=== PATIENT | female | born 1990 | race Caucasian/White ===

== ENCOUNTER 2024-06-02 15:19 | Emergency (ER) | payer OTHER, SELFPAY ==
[2024-06-02 15:41] VITALS: BP 112/74
--- NOTE | 2024-06-02 15:56 | ED.GENMED ---
History of Present Illness
General
Chief Complaint: Cold/Flu/URI Symptoms
Source: patient
Time Seen by Provider: 06/02/24 15:49
History of Present Illness
History of Present Illness:
33-year-old female presenting to the emergency department for evaluation after she was COVID-positive 10 days ago, not feeling any better and tested positive for the flu today. Patient endorses continued cough, fevers, body ache, fatigue and
generally feeling unwell. No known sick contacts, recent travel or recent antibiotics. 24-hour denies any GI related symptoms at this time. No other concerns.
Past History
Past History
ED Past Medical History: Other (Migraines, depression, WPW with ablation, recent HELLP syndrome)
ED Past Surgical History:
Social History
Tobacco: Non-smoker
Alcohol: None
Drug: None
Personal:
Living: with family
Employment: Employed
Family History
Family History: Negative Diabetes, Hypertension or CAD
Review of Systems
Review of Systems
All Other Systems: ROS reviewed and negative except as documented in HPI and ROS
Phy Exam
Physical Exam
Physical Exam:
GENERAL: Alert , in no apparent distress, ill-appearing but nontoxic, sounds congested, intermittent cough throughout the exam
EYE: conjunctiva clear
NECK: Supple
ENT: o/p clr, mmm.
CARDIAC: Regular rate and rhythm
LUNGS: Clear breath sounds bilaterally, no acute respiratory distress, no wheezes/rales/rhonchi
NEUROLOGICAL: Alert and oriented
SKIN: Warm and dry, skin intact.
MUSCULOSKELETAL: well perfused.
PSYCH: Normal and appropriate interaction.
Scores
Heart Failure Risk
Heart Failure Risk Score: Not Applicable
Heart Score for Chest Pain Patients
STEMI patient?: Not applicable
Withdrawal Assessment of Alcohol
Withdrawal Assessment Completed?: Not applicable
Course
Vital Signs
Initial and Last Documented VS:
Initial Vital Signs
Temp Pulse Resp Pulse Ox
99.8 F 110 16 98
06/02/24 15:37 06/02/24 15:37 06/02/24 15:37 06/02/24 15:37
Last Documented Vital Signs
Temp Pulse Resp BP Pulse Ox
99.8 F 110 16 112/74 98
06/02/24 15:37 06/02/24 15:37 06/02/24 15:37 06/02/24 15:41 06/02/24 15:37
MDM/Problems Addressed
Differential Diagnosis Includes:
flu, pneumonia, known recent COVID diagnosis, I do not have concern for acute PE
MDM/Problems Addressed:
33-year-old female presenting to the ER for evaluation after testing positive for the flu earlier today. Continues with flulike symptoms. Oxygen saturation 98%, patient in no acute respiratory distress. Given patient has had symptoms prolonged
with recent COVID diagnosis it is difficult to determine as to when patient's flulike symptoms started and at this time we discussed risk first benefit of Tamiflu and patient would like to forego any Tamiflu at this time. Oahd-ayj-amlvjzq measures
including Motrin/Tylenol, NyQuil/DayQuil, Sudafed and cough suppressants can be used as needed. Patient is otherwise stable for discharge home and aware of return precautions.
*Pulse Oximetry
Patient hypoxic: no
*Critical Care Note
Total Time (30-74mins, 75-104mins- exclusive of procedures): Not Applicable
ED Attending Note
-
Portions of this chart may have been created with voice recognition software.� Occasional wrong word or��sound alike� substitutions may have occurred due to the inherent limitations of voice recognition software.
Discharge Plan
Departure
Patient Disposition: Home (Routine Discharge)
Date of Disposition: 06/02/24
Time of Disposition: 15:57
Patient with high blood pressure during this ER visit?: No
Discharge Problem:
Influenza A
Instructions: Flu in adults - Discharge instructions
Prescriptions:
No Action
PNV cmb#95-ferrous fumarate-FA [] 1 EACH tablet
1 ea PO HS
sertraline 50 MG tablet
50 mg PO HS
hydromorphone 2 mg Tablet
2 mg PO Q4HPRN PRN (Reason: severe pain) Qty: 8 0RF
enoxaparin 40 mg/0.4 mL Syringe
40 mg SC QPM Qty: 42 0RF
Stand Alone Forms: Return to Work
Interventions
Interventions:
*Risk Screen - Suicide Last Done: 06/02/24 15:37
*Neglect/Abuse Screening Last Done: 06/02/24 15:37
ED- Pulmonary Assessment Last Done: 06/02/24 15:57
Discharge Date and Time
Print Language: MALAGASY
== END 2024-06-02 16:30 | disposition home or self-care (01) ==
LOC: EMR 15:19
PROVIDERS: EMERGENCY PHYSICIAN Emergency Medicine; FAMILY PHYSICIAN Family Medicine
DX: J10.1 Influenza due to other identified influenza virus with other respiratory manifestations (principal); Z86.16 Personal history of COVID-19
CPT/HCPCS: 99282